=== PATIENT | female | born 1930 | race Caucasian/White ===

== ENCOUNTER → 2016-04-11 | Outpatient (CLI) | payer MEDICARE, MEDICAID ==
--- NOTE | 2016-04-11 15:26 | US ---
EXAMINATION TYPE: US kidneys/renal and bladder DATE OF EXAM: 04/11/2016 3:09 PM COMPARISON: NONE CLINICAL History: stage 4 kidney disease, extreme kyphotic pt EXAM MEASUREMENTS: Right Kidney: 6.2 x 2.2 x 2.6 cm Left Kidney: 7.3 x 2.9 x 3.1 cm Post Void Residual Volume: 12.9 ml ANATOMY: TECHNOLOGIST IMPRESSION: Right Kidney: atrophic no hydro seen Left Kidney: atrophic no hydro seen Bladder: small unable to fill any more pt age 85 Bilateral Jets seen: no Normal Post Void Residual: yes There is limited filling of the urinary bladder. IMPRESSION: Atrophic appearing kidneys.
== END | disposition home or self-care (01) ==
LOC: RADUSWWP 14:40
PROVIDERS: ATTEND Internal Medicine Nephrology
DX: N26.1 Atrophy of kidney (terminal) (principal); N18.4 Chronic kidney disease, stage 4 (severe)
CPT/HCPCS: 76770